=== PATIENT | male | born 1960 | race Hispanic/Latino ===

== ENCOUNTER 2022-09-17 10:42 | Day surgery (SDC) | payer BC ==
[2022-09-17] MEDS ORDERED: Neomycin-Polymyxin 1 ML AMP ONE ×2 (11:13→12:17)
[2022-09-17] MEDS ORDERED: Lidocaine 1% (PF) 30 ML VIAL ONE (11:13)
[2022-09-17] MEDS ORDERED: PROPOFOL 20 ML ONE (11:45)
[2022-09-17] MEDS ORDERED: Lidocaine 1% PF 5 ML VIAL ONE ×2 (11:46→12:17)
[2022-09-17] MEDS ORDERED: fentaNYL 50 mcg/mL 1 mL Vial ONE ×2 (11:46→14:25)
[2022-09-17] MEDS ORDERED: Midazolam HCl 2 mg/2 ml Vial ONE (11:46)
[2022-09-17] MEDS ORDERED: CEFAZOLIN 2 GM VIAL ONE (12:00)
[2022-09-17] MEDS ORDERED: Acetaminophen 500 MG TAB ONE (12:03)
[2022-09-17] MEDS ORDERED: PHENYLEPHRINE-NS 100 MCG/ML 10 ML SYRINGE ONE ×2 (12:27→13:55)
[2022-09-17] MEDS ORDERED: Dexamethasone 4 mg/ml Vial ONE (13:13)
[2022-09-17] MEDS ORDERED: Ondansetron PF 4 MG/2 ML Vial ONE (13:13)
== END 2022-09-17 15:15 | disposition home or self-care (01) ==
LOC: CSHSDC 10:42
PROVIDERS: ATTEND Podiatrist Foot & Ankle Surgery
PROC: 0SRM0JZ Replacement of Right Metatarsal-Phalangeal Joint with Synthetic Substitute, Open Approach (ICD-10-PCS; principal; 2022-09-17)
PROC: 0QBQ0ZZ Excision of Right Toe Phalanx, Open Approach (ICD-10-PCS; principal; 2022-09-17)
PROC: 0QBN0ZZ Excision of Right Metatarsal, Open Approach (ICD-10-PCS; principal; 2022-09-17)
DX: M20.21 Hallux rigidus, right foot (principal); K21.9 Gastro-esophageal reflux disease without esophagitis; Z79.899 Other long term (current) drug therapy; Z90.49 Acquired absence of other specified parts of digestive tract
CPT/HCPCS: C1713; C1776; J1100; J2001; J2250; J2405; J2704; J3010